=== PATIENT | male | born 1935 | race Caucasian/White ===

== ENCOUNTER 2018-09-12 16:40 | Emergency (ER) | payer MEDICARE, MEDICAID ==
[~2018-09-12] VITALS: Ht 177.8 cm; Wt 49.9 kg
--- NOTE | 2018-09-12 17:14 | PHYS DOC ---
Adult General Chief Complaint Chief Complaint: OTHER COMPLAINTS HPI HPI Patient is a 83 year old male who presents with arrhythmia. The patient has been at [facility] in the NICU for several weeks. He had sepsis, pneumonia, a new lung mass, Clostridium difficile infection. He was ventilator dependent. The patient was discharged from the hospital today and was being transferred [facility] which is very close to this hospital. Prior to arriving at his destination, EMS perceive that the patient was having some episodes of ventricular tachycardia on telemetry so he was diverted to the emergency department. The patient is nonverbal but does answer yes no questions. He has a trach in place and is on a ventilator. He denies pain or other complaints on arrival to the ER. By the time the patient had then connected to the monitor in this emergency department, his rhythm was normal sinus. The patient does have a pacemaker in place. We did contact [facility] to verify that the patient's baseline rhythm was narrow complex although he was reported to have some wide QRS paced rhythms at times. Review of Systems Review of Systems No ROS available as the patient is nonverbal All other systems were reviewed and found to be within normal limits, except as documented in this note. Allergies Allergies Allergies Coded Allergies Type Severity Reaction Last Updated Verified haloperidol Allergy Unknown 09/12/18 Yes hydrocodone Allergy Unknown 09/12/18 Yes Physical Exam Physical Exam Constitutional: frail, elderly male on ventilator, Awake, alert, no acute distress HENT: Normocephalic, atraumatic, bilateral external ears normal, oropharynx dry , trach in place Eyes: PERRLA, EOMI Neck: Normal range of motion Cardiovascular:Heart rate regular rhythm Lungs & Thorax: Bilateral breath sounds clear to auscultation, Port-a-cath in left chest Abdomen: Bowel sounds normal, soft, no tenderness Skin: Warm, dry, no erythema, no rash Back: No tenderness, no CVA tenderness Extremities: No tenderness, no edema Neurologic: Alert and oriented Current Patient Data Vital Signs Vital Signs Date Time Temp Pulse Resp B/P (MAP) Pulse Ox O2 Delivery O2 Flow Rate FiO2 09/12/18 16:50 98 Ventilator 09/12/18 16:40 98.7 109 16 127/66 (86) 98.7 Lab Values Laboratory Tests Test 09/12/18 17:00 White Blood Count 11.8 x10^3/uL (4.0-11.0) H Red Blood Count 2.87 x10^6/uL (4.30-5.70) L Hemoglobin 7.8 g/dL (13.0-17.5) L Hematocrit 24.3 % (39.0-53.0) L Mean Corpuscular Volume 85 fL (79-100) Mean Corpuscular Hemoglobin 27 pg (25-35) Mean Corpuscular Hemoglobin Concent 32 g/dL (31-37) Red Cell Distribution Width 17.7 % (11.5-14.5) H Platelet Count 382 x10^3/uL (140-400) Neutrophils (%) (Auto) 65 % (31-73) Lymphocytes (%) (Auto) 20 % (24-48) L Monocytes (%) (Auto) 8 % (0-9) Eosinophils (%) (Auto) 6 % (0-3) H Basophils (%) (Auto) 1 % (0-3) Neutrophils # (Auto) 7.7 x10^3uL (1.8-7.7) Lymphocytes # (Auto) 2.4 x10^3/uL (1.0-4.8) Monocytes # (Auto) 1.0 x10^3/uL (0.0-1.1) Eosinophils # (Auto) 0.7 x10^3/uL (0.0-0.7) Basophils # (Auto) 0.1 x10^3/uL (0.0-0.2) Sodium Level 136 mmol/L (136-145) Potassium Level 4.3 mmol/L (3.5-5.1) Chloride Level 102 mmol/L (98-107) Carbon Dioxide Level 29 mmol/L (21-32) Anion Gap 5 (6-14) L Blood Urea Nitrogen 37 mg/dL (8-26) H Creatinine 1.1 mg/dL (0.7-1.3) Estimated GFR (Cockcroft-Gault) 63.9 Glucose Level 118 mg/dL (70-99) H Calcium Level 9.3 mg/dL (8.5-10.1) Troponin I Quantitative < 0.017 ng/mL (0.000-0.055) Laboratory Tests 09/12/18 17:00 Laboratory Tests 09/12/18 17:00 EKG EKG [] Radiology/Procedures Radiology/Procedures [] Course & Med Decision Making Course & Med Decision Making Pertinent Labs and Imaging studies reviewed. (See chart for details) Patient is seen and examined immediately on arrival to the ER. He denies complaints. EMS did provide a rhythm strip that looked like it could represent V. tach although when the patient was connected to our monitor, he had a narrow complex rhythm. I did gather more history from the critical care nurse practitioner at [facility]. She states the patient had been an inpatient for over one month. He was stable for discharged to LTAC today. He had a normal set of labs this morning. He was treated for C. difficile during that hospitalization. Patient is a partial CODE BLUE. He will allow defibrillations and medications but no chest compressions. Plan in the ER is to observe on telemetry and check basic labs. Anticipate that the patient will be transferred over to his original destination from this emergency department pending no prolonged episodes of Vtach on monitor. 19:25: Patient has remained very stable during the ED course. Labs at baseline. No acute findings. I did speak to staff at [facility] who discussed his labs from earlier today with me. Patient has no fever. His family is at the bedside. He will be transferred to his original destination the [facility]. Patient had already been accepted for admission to that facility. The accepting physician's name is Dr. Christopher. Souleymane Disclaimer Souleymane Disclaimer This electronic medical record was generated, in whole or in part, using a voice recognition dictation system. Departure Departure Disposition: 05 TRANSFER OTHER Condition: STABLE ROLANDO CHACKO DO Sep 12, 2018 17:14
[2018-09-12 17:19] LABS: BASO # 0.1 x10^3/uL (0.0-0.2); BASO % 1 % (0-3); EOS # 0.7 x10^3/uL (0.0-0.7); EOS % 6 % (0-3); HEMATOCRIT 24.3 % (39.0-53.0); HEMOGLOBIN 7.8 g/dL (13.0-17.5); LYMPH # 2.4 x10^3/uL (1.0-4.8); LYMPH % 20 % (24-48); MEAN CORPUSCULAR HEMOGLOBIN 27 pg (25-35); MEAN CORPUSCULAR HGB CONC 32 g/dL (31-37); MEAN CORPUSCULAR VOLUME 85 fL (79-100); MONO % 8 % (0-9); NEUT # 7.7 x10^3uL (1.8-7.7); NEUT % 65 % (31-73); PLATELET COUNT 382 x10^3/uL (140-400); RED BLOOD COUNT 2.87 x10^6/uL (4.30-5.70); RED CELL DISTRIBUTION WIDTH 17.7 % (11.5-14.5); WHITE BLOOD COUNT 11.8 x10^3/uL (4.0-11.0)
[2018-09-12 17:43] LABS: CALCIUM 9.3 mg/dL (8.5-10.1); CREATININE 1.1 mg/dL (0.7-1.3); GFR 63.9; POTASSIUM 4.3 mmol/L (3.5-5.1)
[2018-09-12 19:30] VITALS: BP 130/69
--- NOTE | 2018-09-12 20:43 | EKG ---
[facility] [address] [place] [address] Test Date: 2018-09-12 Test Time: 17:14:32 Pat Name: KATEY DUNN Department: Room: Gender: M [employer] Specialist: : 1935 Requested By: ROLANDO CHACKO Order Number: [id number] Reading MD: Jose Thompson Measurements Intervals [place] Rate: 91 P: [place]: QRS: 28 QRSD: 84 T: 17 QT: 334 QTc: 412 Interpretive Statements ATRIAL FIBRILLATION. V PACED BEATS Electronically Signed On 09-13-2018 8:51:07 LINK ASSEMBLER by Jose Thompson
[2018-09-25] MEDS ORDERED: CARB1TAB PO (09:39)
[2018-09-25] MEDS ORDERED: GLUC1KIT IM (09:39)
[2018-09-25] MEDS ORDERED: LACT1CAP6 PO (09:39)
[2018-09-25] MEDS ORDERED: ACET650S PO (09:39)
[2018-09-25] MEDS ORDERED: CHOL500062 PO (09:39)
[2018-09-25] MEDS ORDERED: NITR0.4T22 SL (09:39)
[2018-09-25] MEDS ORDERED: ACET650S11 RC (09:39)
[2018-09-25] MEDS ORDERED: IPRA0.2S5 NEB ×2 (09:39)
[2018-09-25] MEDS ORDERED: MULT1TAB52 PO (09:39)
[2018-09-25] MEDS ORDERED: CALC500T PO (09:39)
[2018-09-25] MEDS ORDERED: FAMO20TA5 PO (09:39)
[2018-09-25] MEDS ORDERED: LIDO30CR TP (09:39)
[2018-09-25] MEDS ORDERED: TERA2CAP3 PO (09:39)
[2018-09-25] MEDS ORDERED: TRAZ-85 PO (09:39)
[2018-09-25] MEDS ORDERED: TRAM50TA PO (09:39)
[2018-09-25] MEDS ORDERED: MELA3TAB2 PO (09:39)
[2018-09-25] MEDS ORDERED: LORA0.5T PO (09:39)
[2018-09-25] MEDS ORDERED: LORA10TA3 PO (09:39)
[2018-09-25] MEDS ORDERED: DEXT15DR5 EACHEYE (09:39)
== END 2018-09-12 20:00 | disposition short-term general hospital (02) ==
LOC: ER 16:40
DX: I49.9 Cardiac arrhythmia, unspecified (principal); I47.2 Ventricular tachycardia; Z95.0 Presence of cardiac pacemaker; Z88.5 Allergy status to narcotic agent; Z88.8 Allergy status to other drugs, medicaments and biological substances
CPT/HCPCS: 36415; 80048; 84484; 85025; 93005; 94002; 99285

== ENCOUNTER 2018-09-25 12:14 | Emergency (ER) | payer MEDICARE, MEDICAID ==
[~2018-09-25] VITALS: Ht 182.9 cm; Wt 65.8 kg
[~2018-09-25 12:14] MED LIST: ACET650S PO; ACET650S11 RC; CALC500T PO; CARB1TAB PO; CHOL500062 PO; DEXT15DR5 EACHEYE; FAMO20TA5 PO; GLUC1KIT IM; IPRA0.2S5 NEB; LACT1CAP6 PO; LIDO30CR TP; LORA0.5T PO; LORA10TA3 PO; MELA3TAB2 PO; MULT1TAB52 PO; NITR0.4T22 SL; TERA2CAP3 PO; TRAM50TA PO; TRAZ-85 PO
[2018-09-25] MEDS ORDERED: IV NORMAL SALINE 1000ML BAG 1,000 ML IV ONE (12:30)
--- NOTE | 2018-09-25 13:08 | PHYS DOC ---
Past Medical History Past Medical History: Anemia, Cancer, Dementia, Lung Disease, Pneumonia, Renal Disease, UTI Additional Past Medical Histor: Sepsis, Lung Mass, Chronic Resp Failure, Hyperkalemia,bladder CA Past Surgical History: Cholecystectomy, Coronary Bypass Surgery, Pacemaker, Other Additional Past Surgical Histo: Trach, Portacath left chest ,PEG, LLQ urine sx cath Alcohol Use: None Drug Use: None Adult General Chief Complaint Chief Complaint: RAPID HEART RATE HPI HPI Patient is a 83 year old [f__sex] who presents with [] Review of Systems Review of Systems Constitutional: Denies fever or chills [] Eyes: Denies change in visual acuity, redness, or eye pain [] HENT: Denies nasal congestion or sore throat [] Respiratory: Denies cough or shortness of breath [] Cardiovascular: No additional information not addressed in HPI [] GI: Denies abdominal pain, nausea, vomiting, bloody stools or diarrhea [] : Denies dysuria or hematuria [] Musculoskeletal: Denies back pain or joint pain [] Integument: Denies rash or skin lesions [] Neurologic: Denies headache, focal weakness or sensory changes [] Endocrine: Denies polyuria or polydipsia [] All other systems were reviewed and found to be within normal limits, except as documented in this note. Current Medications Current Medications Current Medications Medications (Trade) Dose Ordered Sig/Ana Rosa Start Time Stop Time Status Last Admin Dose Admin Levofloxacin/ Dextrose 150 ml @ 100 mls/hr 1X ONCE 09/25/18 14:15 09/25/18 14:20 DC Piperacillin Sod/ Tazobactam Sod 4.5 gm/Sodium Chloride 100 ml @ 200 mls/hr 1X ONCE 09/25/18 14:15 09/25/18 14:44 DC 09/25/18 14:38 200 MLS/HR Sodium Chloride 1,000 ml @ 1,000 mls/hr 1X ONCE 09/25/18 12:30 09/25/18 13:29 DC 09/25/18 14:11 1,000 MLS/HR Vancomycin HCl 1.75 gm/Sodium Chloride 500 ml @ 250 mls/hr 1X ONCE 09/25/18 14:15 09/25/18 14:20 DC Allergies Allergies Allergies Coded Allergies Type Severity Reaction Last Updated Verified haloperidol Allergy Unknown 09/12/18 Yes hydrocodone Allergy Unknown 09/12/18 Yes Physical Exam Physical Exam Constitutional: Well developed, well nourished, no acute distress, non-toxic appearance. [] HENT: Normocephalic, atraumatic, bilateral external ears normal, oropharynx moist, no oral exudates, nose normal. [] Eyes: PERRLA, EOMI, conjunctiva normal, no discharge. [] Neck: Normal range of motion, no tenderness, supple, no stridor. [] Cardiovascular:Heart rate regular rhythm, no murmur [] Lungs & Thorax: Bilateral breath sounds clear to auscultation [] Abdomen: Bowel sounds normal, soft, no tenderness, no masses, no pulsatile masses. [] Skin: Warm, dry, no erythema, no rash. [] Back: No tenderness, no CVA tenderness. [] Extremities: No tenderness, no cyanosis, no clubbing, ROM intact, no edema. [] Neurologic: Alert and oriented X 3, normal motor function, normal sensory function, no focal deficits noted. [] Psychologic: Affect normal, judgement normal, mood normal. [] Current Patient Data Vital Signs Vital Signs Date Time Temp Pulse Resp B/P (MAP) Pulse Ox O2 Delivery O2 Flow Rate FiO2 09/25/18 15:30 74 20 117/61 (79) 100 Tracheal Collar 4.0 09/25/18 12:18 98.4 98.4 Lab Values Laboratory Tests Test 09/25/18 12:55 09/25/18 13:05 Urine Collection Type Unknown Urine Color Yellow Urine Clarity Cloudy Urine pH 7.0 Urine Specific [place] 1.015 Urine Protein 100 mg/dL (NEG-TRACE) Urine Glucose (UA) Negative mg/dL (NEG) Urine Ketones (Stick) Negative mg/dL (NEG) Urine Blood Large (NEG) Urine Nitrite Positive (NEG) Urine Bilirubin Negative (NEG) Urine Urobilinogen Dipstick 0.2 mg/dL (0.2 mg/dL) Urine Leukocyte Esterase Large (NEG) Urine RBC 20-40 /HPF (0-2) Urine WBC >40 /HPF (0-4) Urine Squamous Epithelial Cells None /LPF Urine Bacteria Many /HPF (0-FEW) White Blood Count 10.6 x10^3/uL (4.0-11.0) Red Blood Count 2.66 x10^6/uL (4.30-5.70) L Hemoglobin 7.2 g/dL (13.0-17.5) L Hematocrit 22.0 % (39.0-53.0) L Mean Corpuscular Volume 83 fL (79-100) Mean Corpuscular Hemoglobin 27 pg (25-35) Mean Corpuscular Hemoglobin Concent 33 g/dL (31-37) Red Cell Distribution Width 18.0 % (11.5-14.5) H Platelet Count 328 x10^3/uL (140-400) Neutrophils (%) (Auto) 68 % (31-73) Lymphocytes (%) (Auto) 19 % (24-48) L Monocytes (%) (Auto) 8 % (0-9) Eosinophils (%) (Auto) 5 % (0-3) H Basophils (%) (Auto) 1 % (0-3) Neutrophils # (Auto) 7.2 x10^3uL (1.8-7.7) Lymphocytes # (Auto) 2.0 x10^3/uL (1.0-4.8) Monocytes # (Auto) 0.9 x10^3/uL (0.0-1.1) Eosinophils # (Auto) 0.5 x10^3/uL (0.0-0.7) Basophils # (Auto) 0.0 x10^3/uL (0.0-0.2) Prothrombin Time 16.9 SEC (11.7-14.0) H Prothrombin Time INR 1.4 (0.8-1.1) H PTT 44 SEC (24-38) H Sodium Level 142 mmol/L (136-145) Potassium Level 5.3 mmol/L (3.5-5.1) H Chloride Level 105 mmol/L (98-107) Carbon Dioxide Level 30 mmol/L (21-32) Anion Gap 7 (6-14) Blood Urea Nitrogen 44 mg/dL (8-26) H Creatinine 1.3 mg/dL (0.7-1.3) Estimated GFR (Cockcroft-Gault) 52.7 BUN/Creatinine Ratio 34 (6-20) H Glucose Level 90 mg/dL (70-99) Lactic Acid Level 0.9 mmol/L (0.4-2.0) Calcium Level 9.4 mg/dL (8.5-10.1) Magnesium Level 2.2 mg/dL (1.8-2.4) Total Bilirubin 0.3 mg/dL (0.2-1.0) Aspartate Amino Transferase (AST) 30 U/L (15-37) Alanine Aminotransferase (ALT) 21 U/L (16-63) Alkaline Phosphatase 167 U/L (46-116) H Creatine Kinase 31 U/L (39-308) L Creatine Kinase MB (Mass) 0.7 ng/mL (0.0-3.6) Creatine Kinase MB Relative Index % (0-4) Troponin I Quantitative < 0.017 ng/mL (0.000-0.055) JY-Ucf-F-Type Natriuretic Peptide 32841 pg/mL (0-449) H Total Protein 7.4 g/dL (6.4-8.2) Albumin 1.6 g/dL (3.4-5.0) L Albumin/Globulin Ratio 0.3 (1.0-1.7) L Lipase 119 U/L (73-393) Laboratory Tests 09/25/18 13:05 Laboratory Tests 09/25/18 13:05 EKG EKG @1218 NSR at 75bpm with baseline artifact vs atrial flutter, NO ST elevation, t wave inversion III, @1223 NSR at 77bpm with baseline artifact vs atrial flutter, NO ST elevation, t wave inversion III, occasional PVC. Radiology/Procedures Radiology/Procedures [] Course & Med Decision Making Course & Med Decision Making Pertinent Labs and Imaging studies reviewed. (See chart for details) [] Dragon Disclaimer Dragon Disclaimer This electronic medical record was generated, in whole or in part, using a voice recognition dictation system. Departure Departure Impression: Primary Impression: Pneumonia Additional Impression: Acute UTI Disposition: 03 TRANSFER SNF Condition: STABLE Referrals: BARRERA TOURE (PCP) Patient Instructions: Catheter-Associated Urinary Tract Infection FAQs - MONTEJO, Pneumonia, Adult, Suso-[id number] Additional Instructions: Discussed with Dr. Nolasco (PCP) and Dr. Eubanks (pulmonology) who are aware and will continue antibiotics at [facility]. Problem Qualifiers Primary Impression: Pneumonia Pneumonia type: due to unspecified organism Laterality: unspecified laterality Lung location: unspecified part of lung Qualified Codes: J18.9 - Pneumonia, unspecified organism RADHA ASTORGA DO Sep 25, 2018 13:08
--- NOTE | 2018-09-25 13:10 | RAD ---
Single view chest 09/25/2018 CLINICAL INDICATION: Increased weakness and shortness of air. COMPARISON: CT chest 09/13/2018 FINDINGS: 2-lead right chest wall cardiac conduction device in similar position. Prior median sternotomy. Left subclavian chest port and tracheostomy tube insular position. Heart size is normal. Small right pleural effusion. There is unchanged blunted left costophrenic angle. There are small nodular opacities most prominent in the left upper lung. Stable left basilar airspace opacities and right basilar consolidation. No pneumothorax. IMPRESSION: 1. Small right pleural effusion. 2. Right basilar consolidation and left basilar airspace opacities, may represent multifocal infection, pneumonitis and/or a component of pleural fluid. 3. Ill-defined nodular opacities in the left upper lung, may represent metastatic disease. Clinical correlation is recommended. Electronically signed by: Babar Ram MD (09/25/2018 1:06 PM) [id number]
[2018-09-25 13:27] LABS: BASO % 1 % (0-3); EOS # 0.5 x10^3/uL (0.0-0.7); EOS % 5 % (0-3); HEMOGLOBIN 7.2 g/dL (13.0-17.5); LYMPH % 19 % (24-48); MEAN CORPUSCULAR HEMOGLOBIN 27 pg (25-35); MEAN CORPUSCULAR HGB CONC 33 g/dL (31-37); MEAN CORPUSCULAR VOLUME 83 fL (79-100); MONO # 0.9 x10^3/uL (0.0-1.1); MONO % 8 % (0-9); NEUT # 7.2 x10^3uL (1.8-7.7); NEUT % 68 % (31-73); PLATELET COUNT 328 x10^3/uL (140-400); RED BLOOD COUNT 2.66 x10^6/uL (4.30-5.70); WHITE BLOOD COUNT 10.6 x10^3/uL (4.0-11.0)
[2018-09-25 13:30] LABS: BILIRUBIN,URINE NEGATIVE (NEG); CLARITY,URINE CLOUDY; COLOR,URINE YELLOW; NITRITE,URINE POSITIVE (NEG); PROTEIN,URINE 100 mg/dL (NEG-TRACE); UROBILINOGEN,URINE 0.2 mg/dL (0.2 mg/dL)
[2018-09-25 13:34] LABS: CALCIUM 9.4 mg/dL (8.5-10.1); CREATININE 1.3 mg/dL (0.7-1.3); GFR 52.7; POTASSIUM 5.3 mmol/L (3.5-5.1)
[2018-09-25 13:37] LABS: PROTHROMBIN TIME PATIENT 16.9 SEC (11.7-14.0)
[2018-09-25 13:41] LABS: ALBUMIN 1.6 g/dL (3.4-5.0); ALBUMIN/GLOBULIN RATIO 0.3 (1.0-1.7); MAGNESIUM 2.2 mg/dL (1.8-2.4); TOTAL BILIRUBIN 0.3 mg/dL (0.2-1.0); TOTAL PROTEIN 7.4 g/dL (6.4-8.2)
[2018-09-25 13:47] LABS: BACTERIA,URINE MANY /HPF (0-FEW); RBC,URINE 20-40 /HPF (0-2); WBC,URINE >40 /HPF (0-4)
[2018-09-25 13:50] LABS: CREATINE KINASE 31 U/L (39-308)
[2018-09-25] MEDS ORDERED: PIPERACILLIN/TAZOBACTAM 4.5 GM in IV NORMAL SALINE 100ML 100 ML IV ONE (14:15)
[2018-09-25] MEDS ORDERED: VANCOMYCIN 1.75 GM in IV NORMAL SALINE 500ML BAG 500 ML IV ONE (14:15)
--- NOTE | 2018-09-25 14:58 | EKG ---
[facility] [address] [place] [address] Test Date: 2018-09-25 Test Time: 12:18:31 Pat Name: KATEY DUNN Department: Room: Gender: M [employer] [facility] Pricing Consultant: [place] : 1935 Requested By: RADHA ASTORGA Order Number: [id number] Reading MD: Measurements Intervals [place] Rate: 75 P: 66 [place]: 134 QRS: 0 QRSD: 78 T: -9 QT: 478 QTc: 537 Interpretive Statements SINUS RHYTHM LEFT ATRIAL ABNORMALITY LEFTWARD AXIS QRS(T) CONTOUR ABNORMALITY CONSIDER ANTEROLATERAL MYOCARDIAL DAMAGE T ABNORMALITY IN ANTEROSEPTAL LEADS INFERIOR LEADS PROLONGED QT ABNORMAL ECG RI6.01 No previous ECG available for comparison
--- NOTE | 2018-09-25 15:00 | EKG ---
[facility] [address] [place] [address] Test Date: 2018-09-25 Test Time: 12:23:09 Pat Name: KATEY DUNN Department: Room: Gender: M [employer] Part[employer] Erector: [place] : 1935 Requested By: RADHA ASTORGA Order Number: [id number] Reading MD: Measurements Intervals [place] Rate: 77 P: [place]: QRS: -62 QRSD: 160 T: 39 QT: 428 QTc: 486 Interpretive Statements ATRIAL FLUTTER ABNORMAL LEFT AXIS DEVIATION NON SPECIFIC INTRAVENTRICULAR BLOCK RVH WITH REPOLARIZATION ABNORMALITY QRS(T) CONTOUR ABNORMALITY CONSIDER ANTERIOR INFARCT CONSISTENT WITH INFERIOR INFARCT PROBABLY OLD ABNORMAL ECG RI6.01 No previous ECG available for comparison
[2018-09-25 15:30] VITALS: BP 117/61
== END 2018-09-25 15:46 ==
LOC: ER 12:14
DX: J18.9 Pneumonia, unspecified organism (principal); N39.0 Urinary tract infection, site not specified; F03.90 Unspecified dementia, unspecified severity, without behavioral disturbance, psychotic disturbance, mood disturbance, and anxiety; E87.5 Hyperkalemia; Z85.51 Personal history of malignant neoplasm of bladder; Z90.49 Acquired absence of other specified parts of digestive tract; Z95.0 Presence of cardiac pacemaker
CPT/HCPCS: 36415; 71045; 80053; 81001; 82553; 83605; 83690; 83735; 83880; 84484; 85025; 85610; 85730; 87040; 87070; 87086; 87205; 93005; 94640; 96365; 99284; J2543; J7030